=== PATIENT | male | born 1995 | race Caucasian/White ===

== ENCOUNTER 2016-11-18 18:26 | Emergency (ER) | payer OTHER ==
[~2016-11-18] VITALS: Ht 172.7 cm; Wt 70.3 kg
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
[2016-11-18] MEDS ORDERED: LIDOCAINE/EPI 1%-1:100,000 (XYLOCAINE) 20ML INJ ONE (18:45)
[2016-11-18 19:05] VITALS: BP 138/99
== END 2016-11-18 19:03 | disposition home or self-care (01) ==
LOC: ER 18:31
DX: S01.81XA Laceration without foreign body of other part of head, initial encounter (principal); W21.11XA Struck by baseball bat, initial encounter; Y92.320 Baseball field as the place of occurrence of the external cause; Y93.64 Activity, baseball; Y99.8 Other external cause status